=== PATIENT | female | born 1950 | race Caucasian/White ===

== ENCOUNTER 2024-09-17 12:42 | Emergency (ER) | payer MEDICARE ==
[~2024-09-17] VITALS: Ht 162.6 cm; Wt 72.6 kg
[2024-09-17] MEDS ORDERED: CLEOCIN HCL300 MG PO (13:14)
[2024-09-17] MEDS ORDERED: Clindamycin INJ 150 MG/ML 600 MG Vial IM ONE (13:15)
[2024-09-17] MEDS ORDERED: LISINOPRIL10 MG PO (13:30)
[2024-09-17] MEDS ORDERED: SERTRALINE HCL50 MG PO (13:30)
[2024-09-17] MEDS ORDERED: VITAMIN B-121000 MC2 PO (13:30)
[2024-09-17] MEDS ORDERED: CIPRO500 MG PO (13:30)
[2024-09-17] MEDS ORDERED: LEVOTHYROXINE50 MCG PO (13:30)
[2024-09-17] MEDS: CLINDAMYCIN 600MG / 50ML 50 ML IV ONE (13:45)
[2024-09-17] MEDS: Clindamycin INJ 300 MG/50 ML 50 ML IV ONE (13:45)
[2024-09-17 14:16] VITALS: PULSE 67; RESP 18; TEMP 98.6; O2SAT 97
== END 2024-09-17 14:20 | disposition home or self-care (01) ==
LOC: FSED 12:45
DX: L03.116 Cellulitis of left lower limb (principal); I10 Essential (primary) hypertension; E03.9 Hypothyroidism, unspecified; F41.9 Anxiety disorder, unspecified; F32.A Depression, unspecified; Z87.442 Personal history of urinary calculi
CPT/HCPCS: 87040; 87071; 87186; 87205; 99284

== ENCOUNTER 2024-09-25 16:47 | Inpatient (IN) | payer MEDICARE ==
[~2024-09-25] VITALS: Ht 162.6 cm; Wt 72.6 kg
[~2024-09-25 16:47] MED LIST: CIPRO500 MG PO; CLEOCIN HCL300 MG PO; LEVOTHYROXINE50 MCG PO; LISINOPRIL10 MG PO; SERTRALINE HCL50 MG PO; VITAMIN B-121000 MC2 PO
[2024-09-25 19:50] VITALS: RESP 18; TEMP 98.8
[2024-09-25 20:21] LABS: BASOPHILS # (AUTO) 0.1 (0.0-0.1); BASOPHILS % 0.7 % (0.0-1.0); EOSINOPHILS # (AUTO) 0.1 (0.0-0.4); EOSINOPHILS % 1.9 % (0.0-6.0); HEMATOCRIT 42.2 % (34.2-44.1); HEMOGLOBIN 12.7 g/dL (12.0-16.0); LYMPHOCYTES # (AUTO) 1.5 (1.0-3.2); LYMPHOCYTES % 21.9 % (18.0-39.1); MEAN CORPUSCULAR HEMOGLOBIN 29.9 pg (28-32); MEAN CORPUSCULAR HGB CONC 30.1 g/dL (31-35); MEAN CORPUSCULAR VOLUME 99.3 fL (81-99); MONOCYTES # (AUTO) 0.5 (0.2-0.8); MONOCYTES % 6.6 % (4.4-11.3); NEUTROPHILS # (AUTO) 4.7 (2.1-6.9); NEUTROPHILS % 68.6 % (38.7-80.0); PLATELET COUNT 182 x10e3/uL (140-360); RED BLOOD COUNT 4.25 x10e6/uL (3.6-5.1); RED CELL DISTRIBUTION WIDTH 14.5 % (11.7-14.4); WHITE BLOOD COUNT 6.81 x10e3/uL (4.8-10.8)
[2024-09-25 20:43] LABS: ALBUMIN 3.8 g/dL (3.5-5.0); ALBUMIN/GLOBULIN RATIO 0.9 (0.8-2.0); ANION GAP 14.3 mmol/L (8-16); BILIRUBIN,TOTAL 0.5 mg/dL (0.2-1.2); CALCIUM 9.4 mg/dL (8.4-10.2); CREATININE, SERUM 0.92 mg/dL (0.57-1.11); POTASSIUM 4.3 mmol/L (3.5-5.1); TOTAL PROTEIN 8.2 g/dL (6.5-8.1)
[2024-09-25] MEDS ORDERED: Vancomycin IV 1 GM in SODIUM CHLORIDE 0.9% 250ML 250 ML IV ONE (21:00)
[2024-09-25] MEDS: Vancomycin IV 1 GM in SODIUM CHLORIDE 0.9% 250ML 250 ML IV SCH (21:39)
[2024-09-25 22:30] VITALS: PULSE 65
[2024-09-25] MEDS ORDERED: SODIUM CHLORIDE FLUSH 10 ML SYR INJ PRN (23:00)
[2024-09-26] VITALS (12 sets, daily range): BP systolic 96–144; BP diastolic 49–84; PULSE 57–74; RESP 18–20; TEMP 97.7–98.7; O2SAT 96–100
[2024-09-26] MEDS: ACETAMINOPHEN 325 MG TAB PO PRN (02:44)
[2024-09-26] MEDS: Morphine 4mg INJECTION 4 MG/ML INJ IV PRN (05:47)
[2024-09-26] MEDS: ONDANSETRON HCL INJ 2MG/ML 2ML 2 MG/ML VIAL IV PRN (05:50)
[2024-09-26 06:03] LABS: BASOPHILS % 0.6 % (0.0-1.0); EOSINOPHILS # (AUTO) 0.2 (0.0-0.4); EOSINOPHILS % 2.5 % (0.0-6.0); HEMATOCRIT 38.5 % (34.2-44.1); HEMOGLOBIN 11.8 g/dL (12.0-16.0); LYMPHOCYTES # (AUTO) 1.6 (1.0-3.2); LYMPHOCYTES % 24.6 % (18.0-39.1); MEAN CORPUSCULAR HEMOGLOBIN 30.2 pg (28-32); MEAN CORPUSCULAR HGB CONC 30.6 g/dL (31-35); MEAN CORPUSCULAR VOLUME 98.5 fL (81-99); MONOCYTES # (AUTO) 0.5 (0.2-0.8); MONOCYTES % 7.5 % (4.4-11.3); NEUTROPHILS # (AUTO) 4.1 (2.1-6.9); NEUTROPHILS % 64.3 % (38.7-80.0); PLATELET COUNT 167 x10e3/uL (140-360); RED BLOOD COUNT 3.91 x10e6/uL (3.6-5.1); RED CELL DISTRIBUTION WIDTH 14.2 % (11.7-14.4); WHITE BLOOD COUNT 6.38 x10e3/uL (4.8-10.8)
[2024-09-26 06:42] LABS: ALBUMIN 3.2 g/dL (3.5-5.0); ALBUMIN/GLOBULIN RATIO 0.8 (0.8-2.0); ANION GAP 13.7 mmol/L (8-16); BILIRUBIN,TOTAL 0.9 mg/dL (0.2-1.2); CALCIUM 8.8 mg/dL (8.4-10.2); CREATININE, SERUM 0.84 mg/dL (0.57-1.11); POTASSIUM 3.7 mmol/L (3.5-5.1)
[2024-09-26] MEDS ORDERED: DOCUSATE SODIUM 100 MG CAP PO PRN (08:00)
[2024-09-26] MEDS ORDERED: METOPROLOL TARTRATE INJ 1 MG/ML VIAL IV PRN (08:00)
[2024-09-26] MEDS ORDERED: MELATONIN 3 MG TAB PO PRN (08:00)
[2024-09-26] MEDS ORDERED: ALBUTEROL/IPRATROPIUM 3 ML NEB NEB PRN (08:00)
[2024-09-26] MEDS: SENNOSIDES 8.6 MG TAB PO SCH (09:00)
[2024-09-26] MEDS: LISINOPRIL 20 MG TAB PO SCH (09:36)
[2024-09-26] MEDS: LEVOTHYROXINE SODIUM 50 MCG TAB PO SCH (09:37)
[2024-09-26] MEDS: SERTRALINE HCL 50 MG TAB PO SCH (09:37)
[2024-09-26] MEDS: SODIUM CHLORIDE 0.9% 250ML 250 ML ONE (11:51)
[2024-09-26] MEDS: FAMOTIDINE 20 MG TAB PO SCH (17:38)
[2024-09-26] MEDS: ENOXAPARIN SOD INJ 40 MG/0.4 ML SYR SC SCH (17:39)
[2024-09-27] VITALS (10 sets, daily range): BP systolic 96–154; BP diastolic 49–68; PULSE 58–97; RESP 18–21; TEMP 97.8–99; O2SAT 96–100
[2024-09-27 05:57] LABS: BASOPHILS % 0.7 % (0.0-1.0); EOSINOPHILS # (AUTO) 0.1 (0.0-0.4); EOSINOPHILS % 1.7 % (0.0-6.0); HEMATOCRIT 35.5 % (34.2-44.1); HEMOGLOBIN 11.4 g/dL (12.0-16.0); LYMPHOCYTES # (AUTO) 1.1 (1.0-3.2); LYMPHOCYTES % 19.5 % (18.0-39.1); MEAN CORPUSCULAR HEMOGLOBIN 30.3 pg (28-32); MEAN CORPUSCULAR HGB CONC 32.1 g/dL (31-35); MEAN CORPUSCULAR VOLUME 94.4 fL (81-99); MONOCYTES # (AUTO) 0.4 (0.2-0.8); MONOCYTES % 7.7 % (4.4-11.3); NEUTROPHILS % 69.9 % (38.7-80.0); PLATELET COUNT 153 x10e3/uL (140-360); RED BLOOD COUNT 3.76 x10e6/uL (3.6-5.1); RED CELL DISTRIBUTION WIDTH 14.6 % (11.7-14.4); WHITE BLOOD COUNT 5.75 x10e3/uL (4.8-10.8)
[2024-09-27 06:22] LABS: ANION GAP 12.5 mmol/L (8-16); CALCIUM 8.7 mg/dL (8.4-10.2); CREATININE, SERUM 0.99 mg/dL (0.57-1.11); POTASSIUM 4.5 mmol/L (3.5-5.1)
[2024-09-28] VITALS (9 sets, daily range): BP systolic 125–145; BP diastolic 60–75; PULSE 50–78; RESP 18–20; TEMP 98.1–98.5; O2SAT 97–99
[2024-09-28 09:05] LABS: CALCIUM 8.7 mg/dL (8.4-10.2); CREATININE, SERUM 0.87 mg/dL (0.57-1.11)
[2024-09-28 09:34] LABS: BASOPHILS % 0.7 % (0.0-1.0); EOSINOPHILS # (AUTO) 0.1 (0.0-0.4); EOSINOPHILS % 2.3 % (0.0-6.0); HEMATOCRIT 36.2 % (34.2-44.1); HEMOGLOBIN 11.4 g/dL (12.0-16.0); LYMPHOCYTES # (AUTO) 1.9 (1.0-3.2); LYMPHOCYTES % 33.6 % (18.0-39.1); MEAN CORPUSCULAR HEMOGLOBIN 29.3 pg (28-32); MEAN CORPUSCULAR HGB CONC 31.5 g/dL (31-35); MEAN CORPUSCULAR VOLUME 93.1 fL (81-99); MONOCYTES # (AUTO) 0.5 (0.2-0.8); MONOCYTES % 9.3 % (4.4-11.3); NEUTROPHILS % 53.6 % (38.7-80.0); PLATELET COUNT 178 x10e3/uL (140-360); RED BLOOD COUNT 3.89 x10e6/uL (3.6-5.1); RED CELL DISTRIBUTION WIDTH 14.5 % (11.7-14.4); WHITE BLOOD COUNT 5.62 x10e3/uL (4.8-10.8)
[2024-09-28 14:24] LABS: CHOL/HDL RATIO 4.2 (3.0-3.6)
[2024-09-28] MEDS ORDERED: Vancomycin IV 1 GM VIAL ONE (20:28)
[2024-09-28] MEDS: ATORVASTATIN 20 MG TAB PO SCH (22:01)
[2024-09-29] VITALS (10 sets, daily range): BP systolic 125–141; BP diastolic 59–82; PULSE 55–74; RESP 16–20; TEMP 97.6–99.1; O2SAT 96–100
[2024-09-29] MEDS: MEROPENEM 1 GM in SODIUM CHLORIDE 0.9% 100 ML IV SCH (22:03)
[2024-09-30] VITALS (9 sets, daily range): BP systolic 132–149; BP diastolic 64–77; PULSE 51–66; RESP 18–20; TEMP 97.7–98.9; O2SAT 96–100
[2024-09-30] MEDS ORDERED: TYLENOL325 MG PO (09:27)
[2024-09-30] MEDS ORDERED: ATORVASTATIN CA20 MG PO (09:27)
[2024-09-30] MEDS ORDERED: SENOKOT8.6 MG PO (09:27)
[2024-10-01] VITALS (10 sets, daily range): BP systolic 113–150; BP diastolic 54–80; PULSE 53–75; RESP 16–20; TEMP 97.8–98.6; O2SAT 98–100
[2024-10-02] VITALS (10 sets, daily range): BP systolic 115–134; BP diastolic 58–72; PULSE 57–85; RESP 16–20; TEMP 97.1–98.8; O2SAT 96–100
[2024-10-02] MEDS ORDERED: NON-FORMULARY MEDICATION IV SCH (01:00)
[2024-10-02] MEDS ORDERED: Vancomycin IV 1 GM in SODIUM CHLORIDE 0.9% 250ML 250 ML IV SCH (11:00)
[2024-10-02] MEDS: Vancomycin IV 1 GM in SODIUM CHLORIDE 0.9% 250ML 250 ML IV SCH (12:12)
[2024-10-02] MEDS: MEROPENEM 1 GM in SODIUM CHLORIDE 0.9% 100 ML IV SCH (16:37)
[2024-10-02] MEDS: SODIUM CHLORIDE 0.9% 250ML 250 ML ONE (22:50)
[2024-10-03] VITALS (7 sets, daily range): BP systolic 121–138; BP diastolic 51–67; PULSE 55–67; RESP 18–20; TEMP 95.7–98.6; O2SAT 95–100
== END 2024-10-03 17:23 | DRG 603 ==
LOC: ER 19:55 → ERHOLD 22:53 → MED/SURG2 23:52
PROVIDERS: ADMIT Internal Medicine; ATTEND Internal Medicine
DX: L03.116 Cellulitis of left lower limb (principal); L97.228 Non-pressure chronic ulcer of left calf with other specified severity; L97.528 Non-pressure chronic ulcer of other part of left foot with other specified severity; B95.62 Methicillin resistant Staphylococcus aureus infection as the cause of diseases classified elsewhere; B96.5 Pseudomonas (aeruginosa) (mallei) (pseudomallei) as the cause of diseases classified elsewhere; I73.9 Peripheral vascular disease, unspecified; I10 Essential (primary) hypertension; F39 Unspecified mood [affective] disorder; E03.9 Hypothyroidism, unspecified; F41.9 Anxiety disorder, unspecified; F32.A Depression, unspecified; Z95.820 Peripheral vascular angioplasty status with implants and grafts; Z79.890 Hormone replacement therapy; Z88.0 Allergy status to penicillin; Z88.5 Allergy status to narcotic agent; Z87.891 Personal history of nicotine dependence
CPT/HCPCS: 36415; 80048; 80053; 80061; 80202; 85025; 87040; 87071; 87081; 87186; 87205; 93925; 94799; 99252; 99284; J0692; J1650; J2185; J2270; J2405; J7050